=== PATIENT | female | born 1960 | race American Indian/Alaskan Native ===

== ENCOUNTER 2023-10-08 05:55 | Emergency (ER) | payer MEDICAID ==
[2023-10-08] MEDS: Albuterol/Ipratropium 3.0-0.5 MG/3 ML Neb Soln NEB ONE ×2 (06:37→16:26)
[2023-10-08 06:45] LABS: BASOPHILS PERCENT AUTO 0.4 % (0.0-1.0); EOSINOPHILS PERCENT AUTO 3.5 % (1.0-3.0); HEMATOCRIT 34.3 % (37.0-47.0); HEMOGLOBIN 10.9 g/dL (12.0-16.0); LYMPHOCYTES PERCENT AUTO 17.9 % (20.5-50.1); MEAN CORPUSCULAR HEMOGLOBIN 29.9 pg (27.0-34.0); MEAN CORPUSCULAR HGB CONC 31.8 g/dL (33.0-35.0); MEAN CORPUSCULAR VOLUME 94.2 fL (80-100); MONOCYTES PERCENT AUTO 10.6 % (2-8); NEUTROPHILS PERCENT AUTO 67.6 % (42.2-75.2); PLATELET COUNT,PLT 421 10^3/uL (150-450); RED BLOOD CELL COUNT 3.64 10^6/uL (4.2-5.4); WHITE BLOOD CELL COUNT,WBC 9.8 10^3/uL (5.0-10.0)
[2023-10-08] MEDS: Sodium Chloride 0.9% 10 ML Syringe FLUSH PRN (06:45)
[2023-10-08 07:14] LABS: ALANINE AMINOTRANSFERASE,ALT 18 U/L (14-59); ALBUMIN 2.8 g/dL (3.4-5.0); ALKALINE PHOSPHATASE 154 U/L (46-116); ANION GAP 12.7 mEq/L (7-13); ASPARTATE AMNIOTRANSFERASE,AST 19 U/L (15-37); BILIRUBIN TOTAL 0.2 mg/dL (0.2-1.0); BLOOD UREA NITROGEN,BUN 8 mg/dL (7-18); BUN/CREATININE RATIO 5.1 (No establ ref range); CALCIUM 8.5 mg/dL (8.5-10.1); CARBON DIOXIDE,CO2 23 mmol/L (21-32); CHLORIDE,CL 104 mmol/L (98-107); CREATININE 1.57 mg/dL (0.55-1.02); GLUCOSE RANDOM 163 mg/dL (70-99); POTASSIUM,K 3.7 mmol/L (3.5-5.1); PROTEIN TOTAL,TP 6.6 g/dL (6.4-8.2); SODIUM,NA 136 mmol/L (136-145)
[2023-10-08 07:16] LABS: A/G RATIO 0.74; ESTIMATED GFR 37 mL/min (>=60)
[2023-10-08 07:22] LABS: B-TYPE NATRIURETIC PEPTIDE,BNP 870 pg/ml (0-100)
[2023-10-08] MEDS: Aspirin 81 MG Tab.Chew ONE (07:26)
[2023-10-08] MEDS: Aspirin 81 MG Tab.Chew PO ONE (07:26)
[2023-10-08 07:45] LABS: PROTHROMBIN TIME 9.9 SEC (9.0-12.0)
[2023-10-08 08:09] LABS: APPEARANCE,URINE CLEAR (CLEAR); BILIRUBIN,URINE NEGATIVE (NEGATIVE); COLOR,URINE YELLOW (YELLOW); GLUCOSE,URINE NEGATIVE (NEGATIVE); KETONES,URINE NEGATIVE (NEGATIVE); LEUKOCYTE ESTERASE,URINE NEGATIVE (NEGATIVE); NITRITE,URINE NEGATIVE (NEGATIVE); OCCULT BLOOD,URINE NEGATIVE (NEGATIVE); PH,URINE 6.5 (5.0-9.0); PROTEIN,URINE NEGATIVE (NEGATIVE); UROBILINOGEN,URINE 0.2 mg/dL (0.2-1.0)
[2023-10-08] MEDS: Heparin Sodium 5,000 Units/ML Vial IVPUSH ONE (08:13)
[2023-10-08] MEDS: Heparin Sodium/0.45% NaCl 25,000 UNITS/500 ML BAG IV SCH (08:14)
[2023-10-08] MEDS ORDERED: Heparin Sodium 5,000 Units/ML Vial IV PRN (12:53)
== END 2023-10-08 17:11 ==
LOC: DL.ED 05:55
DX: I21.4 Non-ST elevation (NSTEMI) myocardial infarction (principal); Z87.891 Personal history of nicotine dependence; Z79.899 Other long term (current) drug therapy; Z88.8 Allergy status to other drugs, medicaments and biological substances
CPT/HCPCS: 36415; 71046; 80053; 81003; 83880; 84484; 85025; 85610; 85730; 87635; 87804; 93005; 94640; 96365; 96366; 99285; A9270; J1644; 93010; J3490; J7620-GY; U0002